=== PATIENT | female | born 1980 | race Caucasian/White ===

== ENCOUNTER 2019-04-22 15:16 | Emergency (ER) | payer MEDICAID, OTHER ==
[2019-04-22] MEDS ORDERED: TYLENOL EXTRA STRENGTH 500 MG PO STA (15:42)
[2019-04-22] MEDS ORDERED: TYLENOL EXTRA STRENGTH 500 MG ONE (15:49)
--- NOTE | 2019-04-22 16:42 | XRAY ---
Indication: Cough and congestion. Comparison: None PA/lateral chest demonstrates normal heart and lungs. Bony thorax intact with old left 4-6 rib fractures.
[2019-04-22 16:51] LABS: INFLUENZA A POSITIVE (NEGATIVE); INFLUENZA B NEGATIVE (NEGATIVE); RESPIRATORY SYNCTIAL VIRUS NEGATIVE (Negative)
--- NOTE | 2019-04-22 17:29 | ERPHSYRPT ---
- History of Present Illness Time Seen by Provider: 04/22/19 15:45 Source: patient Exam Limitations: no limitations Patient Subjective Stated Complaint: pt here for cough, fever that started today , she has kids ill at home Triage Nursing Assessment: pt alert, resp easy,dry hacky cough, skin w/d/p Physician History: patient is a 38-year-old female who presents with her 2 children all of whom have had fevers and cough. Should be noted mother is a smoker. The end this child also was diagnosed with RSV 2 weeks ago. Timing/Duration: yesterday Cough Quality/Degree: severe, productive cough Possible Cause: occasional episodes Modifying Factors: Improves With: nothing Associated Symptoms: fever International travel in last 2 weeks: No Allergies/Adverse Reactions: betamethasone Allergy (Verified 04/22/19 15:35) Home Medications: Dextroamphetamine/Amphetamine [Dextroamp-Amphetamin 20 mg Tab] 20 mg DAILY 04/22 [History] Hydrocodone/APAP 5-325 Tab^^^ [[place] 5-325 Tablet^^^] 1 ea DAILY 04/22/19 [ History] Hx Influenza Vaccination/Date Given: No Hx Pneumococcal Vaccination/Date Given: No Immunizations Up to Date: Yes - Review of Systems Constitutional: Fever, No Chills Eyes: No Symptoms Ears, Nose, & Throat: No Symptoms Respiratory: Cough, No Dyspnea Cardiac: No Chest Pain, No Edema, No Syncope Abdominal/Gastrointestinal: No Abdominal Pain, No Nausea, No Vomiting, No Diarrhea Genitourinary Symptoms: No Dysuria Musculoskeletal: No Back Pain, No Neck Pain Skin: No Rash Neurological: No Dizziness, No Focal Weakness, No Sensory Changes Psychological: No Symptoms Endocrine: No Symptoms All Other Systems: Reviewed and Negative - Past Medical History Pertinent Past Medical History: No - Past Surgical History Past Surgical History: Yes Musculoskeletal: Orthopedic Surgery Female Surgical History: Section, Tubal Ligation - Social History Smoking Status: Current some day smoker Exposure to second hand smoke: Yes Drug Use: none Patient Lives Alone: No - Female History Hx Last Menstrual Period: unsure Hx Now: No - Nursing Vital Signs Nursing Vital Signs: Initial Vital Signs Temperature 100.1 F 04/22/19 15:31 Pulse Rate 134 H 04/22/19 15:31 Respiratory Rate 20 04/22/19 15:31 Blood Pressure 129/86 04/22/19 15:31 O2 Sat by Pulse Oximetry 95 04/22/19 15:31 Pain Scale Pain Intensity 0 - Physical Exam General Appearance: mild distress, alert Eye Exam: PERRL/EOMI, eyes nml inspection Ears, Nose, Throat Exam: normal ENT inspection, TMs normal, pharynx normal, moist mucous membranes Neck Exam: normal inspection, non-tender, supple, full range of motion Respiratory Exam: lungs clear, crackles/rales, rhonchi, No respiratory distress Cardiovascular Exam: regular rate/rhythm, normal heart sounds Gastrointestinal/Abdomen Exam: soft, No tenderness Back Exam: normal inspection, No CVA tenderness, No vertebral tenderness Extremity Exam: normal inspection, normal range of motion Neurologic Exam: alert, oriented x 3, cooperative, normal mood/affect, sensation nml, No motor deficits Skin Exam: normal color, warm, dry, No rash Lymphatic Exam: No adenopathy SpO2: 95 - Course Nursing assessment & vital signs reviewed: Yes Ordered Tests: Active Orders 24 hr Category Date Time Status CHEST 2 VIEWS (PA AND LAT) Stat Exams 04/22/19 16:04 Completed Medication Summary Discontinued Medications Generic Name Dose Route Start Last Admin Trade Name Slickq PRN Reason Stop Dose Admin Acetaminophen 1,000 mg 04/22/19 15:42 04/22/19 15:57 Tylenol Extra Strength 500 Mg PO 04/22/19 15:43 1,000 mg STAT STA Administration Acetaminophen Confirm 04/22/19 15:49 Tylenol Extra Strength 500 Mg Administered 04/22/19 15:50 Dose 1,000 mg .ROUTE .Revee ONE Lab/Rad Data: Laboratory Results 04/22/19 Range/Units Unknown Influenza Type A Ag POSITIVE (NEGATIVE) Influenza Type B Ag NEGATIVE (NEGATIVE) RSV (PCR) NEGATIVE (Negative) Group A Strep Antibody NEGATIVE (NEGATIVE) - Progress Progress: improved Air Movement: good Blood Culture(s) Obtained: No Antibiotics given: No - Departure Departure Disposition: Home Clinical Impression: Influenza A Condition: Stable Critical Care Time: No Referrals: DOCTOR,NO FAMILY [Primary Care Provider] - Instructions: Flu, Adult (DC) Prescriptions: Oseltamivir 75 mg [Tamiflu 75MG Capsule] 75 mg PO BID #10 cap
[2019-04-22 17:40] VITALS: BP 113/67; PULSE 115; O2SAT 94
== END 2019-04-22 17:41 | disposition home or self-care (01) ==
LOC: ED 15:16
DX: J09.X2 Influenza due to identified novel influenza A virus with other respiratory manifestations (principal)
CPT/HCPCS: 71046; 87631; 87651; 99284; A9270-GY